=== PATIENT | female | born 1945 | race Caucasian/White ===

== ENCOUNTER 2021-12-20 02:11 | Outpatient (CLI) | payer MEDICARE, SELFPAY ==
--- NOTE | 2021-12-20 | DI.US_ITS ---
Exam(s) US PAIN CLINIC NEEDLE GUIDANCE EXAM: ULTRASOUND GUIDED INJECTION,PIRIFORMIS SYNDROME COMPARISON: No exams were available for comparison TECHNIQUE: Ultrasound guidance was provided for trigger point injection. The radiologist was not pr esent for this procedure. FINDINGS: Submitted images reveal needle in the region of the target muscle. IMPRESSION: DATA REPOSITORY:
[2021-12-20 11:48] VITALS: BP 139/72; PULSE 68; RESP 18; TEMP 36.2; O2SAT 99
--- NOTE | 2021-12-20 12:28 | PDOC.PAIN_ITS ---
Pain Clinic Procedure Note Procedure Note Procedure Note: ULTRASOUND GUIDED LEFT Piriformis muscle trigger point INJECTIONS and left gluteus medius tendon needling Pre-Procedural Evaluation: Karen Rabago has been referred to the [facility] for an Ultrasound Guided left injection for a chief complaint of left buttock pain. Pre-procedure Pain Score: 1/10 Patient was interviewed and the medical record reviewed. There were no medical, pharmacologic, radiographic, or other structural contraindications to preforming an ultrasound guided injection. Risks and expected side effects as well as potential benefits of the procedure were reviewed. The patient consent form was signed and witnessed. Standard time-out procedure was performed. The use of direct ultrasound visualization of the needle (rather than a non- guided injection) was required to increase patient safety by excluding inadvertent intramuscular, intratendinous, or intraneural needle placement and minimizing bleeding by avoiding osteochondral or vascular injury from the need le. Additionally, the increased accuracy of placement may increase clinical effectiveness and will allow higher diagnostic specificity when evaluating effectiveness of this injection. Procedure Description: The patient was placed in the Prone position and automated blood pressure cuff and pulse oximeter applied for monitoring during the procedure and recorded in the medical record. Pre-injection ultrasound scanning of the area of interest was performed using linear transducer, identifying relevant anatomy, landmarks, and neurovascular structures allowing for optimal needle path. The site was then prepared in the usual sterile fashion, using thorough Chlorhexadine preparation of the skin and sterile draping. The same ultrasound transducer was then passed into the sterile field using sterile probe cover and sterile ultrasound gel. The injection target was again visualized. Skin and subcutaneous tissues were anesthetized with 2 mL of 1% Lidocaine. A 21 guage 3.5 Pajunk ultrasound needle was placed under live ultrasound guidance, using an in-plane approach, to the target area. After visualization of the needle tip at the target area (piriformis muscle), a mixture of 1 cc of Depomedrol (40 mg/cc) was injected into the muscle belly and this was flushed with 3 cc of 2% Lidocaine. 15 passes were made through the Piriformis muscle. I then repositioned the needle towards the gluteus medius tendon. I injected 3 cc of 2% Lidocaine around the tendon and made 15 passes through the tendon. I removed the needle without difficulty. This was all completed after negative aspiration for blood. Ultrasound images were captured and stored for documentation purposes. Post-procedure Pain Score:0/10 Vital signs were stable throughout the procedure and were as recorded in the docflowsheet by the nursing staff. Follow up plans and appointments were discussed with the patient.Post procedure instruction was given as documented in nursing documentation and having met discharge criteria, they were discharged from the [facility]. COMMENTS: She will rest the left buttock for 7 days. Andrea Whitehead DO, MPH [facility]-Pain Management [facility]-Center for Pain Management
[2021-12-20] MEDS: Lidocaine 2% Pres-Free 5 ML VIAL IJ (12:51)
[2021-12-20] MEDS: methylPREDNISolone ACETATE 40 MG/ML VIAL IJ (12:51)
[2021-12-20 12:52] VITALS: PULSE 94; O2SAT 96
== END 2021-12-20 02:31 ==
PROVIDERS: PCP Internal Medicine; Visit Provider Preventive Medicine Occupational Medicine
DX: M79.18 Myalgia, other site (principal)
CPT/HCPCS: 20553; 76942; J1030

== ENCOUNTER 2022-05-01 14:44 | Outpatient (CLI) | payer MEDICARE, SELFPAY ==
--- NOTE | 2022-05-01 06:00 | DI.RAD_ITS ---
Exam(s) XR PAIN CLINIC LUMBAR SP 2V EXAM: XR PAIN CLINIC LUMBAR SP 2V CLINICAL HISTORY: Dx: Lumbar Radiculopathy TECHNIQUE: 2D and realtime digital imaging was performed. CONTRAST MATERIAL: Refer to procedure report. COMPARISON: No exams were available for comparison FINDINGS: Fluoroscopy was provided for Dr. Whitehead during the performance of a lumbar epidural steroid injection. Please refer to the procedure report for complete details. Ka,r=7.98 mGy IMPRESSION:
[2022-05-01 14:59] VITALS: BP 132/82; PULSE 95; RESP 20; TEMP 36.9; O2SAT 97
--- NOTE | 2022-05-01 15:29 | PDOC.PAIN ---
Pain Clinic Procedure Note Procedure Note Procedure Note: Lumbar Epidural Steroid Injection Procedure Note COMMENTS: She was recently evaluated (04/09/22) by her spine surgeon at [facility] (Dr. Lieberman), who recommended this procedure. Pre-procedure pain VAS 7/10. Dx: Lumbar radiculopathy Karen Rabago has been referred to the [facility] for lumbar epidural steroid injection. The patient was greeted by the nurse who verified patients name and . Patient was then taken to the fluoroscopy suite. The patient was interviewed and the medial record reviewed. There were no medical, pharmacologic, radiographic, or other structural contraindications to attempting fluoroscopically guided lumbar epidural steroid injection. Risks and expected side effects as well as potential benefits of the procedure were reviewed and voiced concerns expressed. The patient consent form was signed and witnessed. Standard patient time-out procedure was performed. The patient was placed in the prone position on the fluoroscopy table and automated blood pressure cuff and pulse oximeter applied. The skin entry point for entering/approaching the epidural space at L4-L5 and marked. Following thorough chlorhexadine preparation of the skin and draping and 1% lidocaine infiltration of the skin entry point and subcutaneous tissues, a 18 gauge Touhy needle was placed under fluoroscopic guidance and with loss of resistance technique into the epidural space. Needle tip placement and depth were aided and confirmed by fluoroscopy. There was no paresthesia or return of blood or CSF through the needle. 1 cc's of Omnipaque 240 was injected with clear epidural spread confirmed with fluoroscopy. 80mg depomedrol was injected. There was not any unusual discomfort expressed by Karen Rabago. Patient's vital signs were stable throughout the procedure and were as recorded in nursing records. Follow up plans and appointments were discussed with patient. Post procedure instruction was given as documented in nursing records and having met discharge criteria and was discharged from the [facility] Management [facility]. COMMENTS: If this procedure is helpful, it can be completed up to 3 times per 12 months. Post-procedure pain VAS = 2/10. Andrea Whitehead DO, MPH [facility]-Pain Management [facility]-Center for Pain Management
[2022-05-01 15:39] VITALS: BP 149/67; PULSE 92; RESP 16; O2SAT 97
[2022-05-01] MEDS: methylPREDNISolone ACETATE 80 MG/ML VIAL IJ (15:43)
[2022-05-01] MEDS: Omnipaque 240 MG/ML 50 ML BTL IJ (15:43)
== END 2022-05-01 14:45 | disposition home or self-care (01) ==
PROVIDERS: PCP Internal Medicine; Visit Provider Preventive Medicine Occupational Medicine
DX: M54.16 Radiculopathy, lumbar region (principal)
CPT/HCPCS: 62323; 72100; J1040; Q9967

== ENCOUNTER 2022-08-08 14:18 | Outpatient (CLI) | payer MEDICARE, SELFPAY ==
--- NOTE | 2022-08-08 06:00 | DI.RAD_ITS ---
Exam(s) XR PAIN CLINIC SACRIOILIAC 2V EXAM: XR PAIN CLINIC SACRIOILIAC 2V CLINICAL HISTORY: Dx: Sacroiliac Joint Dysfunction TECHNIQUE: 2D and realtime digital imaging was performed. CONTRAST MATERIAL: Refer to procedure report. COMPARISON: No exams were available for comparison FINDINGS: Fluoroscopy was provided for Dr. Whitehead during the performance of a sacroiliac joint injection. [place] abbott refer to the procedure report for complete details. Ka,r=2.48 mGy IMPRESSION:
[2022-08-08 14:50] VITALS: BP 131/71; PULSE 79; RESP 20; TEMP 36; O2SAT 98
--- NOTE | 2022-08-08 15:00 | PDOC.PAIN_ITS ---
Date of service: 08/08/22 Time of Service: 15:00 Pain Clinic Procedure Note Procedure Note Procedure Note: INTRA-ARTICULAR SI JOINT INJECTION Karen Rabago has been referred to the [facility] Management [facility] for intra- articular SI joint injection. COMMENTS: She was previously evaluated. Pre-procedure pain VAS was 7/10. Dx: Sacroiliac joint dysfunction Patient was interviewed and the medical record reviewed. There were no medical, pharmacologic, radiographic or other structural contraindications to attempting fluoroscopically guided intra-articular SI joint injection. Risks and expected side effects as well as potential benefit of the procedure were reviewed and voiced concerns addressed. The printed consent form was signed and witnessed. Standard time-out procedure was performed. Patient was placed in the prone position on the fluoroscopy table and automated blood pressure cuff and pulse oximeter applied. The skin entry point for approaching the left SI joints was identified under the most advantageous fl uoroscopic view and marked. Following thorough Chlorhexadine preparation of the skin and draping and 1% lidocaine infiltration of the skin entry point and subcutaneous tissues, a 22 gauge 3.5 spinal needle was placed under fluoroscopic guidance into the left SI joints was identified under the most advantageous fluoroscopic view and marked. Intra-articular placement was conf irmed by a clear arthrogram resulting from the injection of 0.25ml Omnipaque 240, 1ml 1% lidocaine, and 80mg Depomedrol were injected intra-articularily with an initial reproduction of a significant component of the usual pain. Vital signs were stable throughout the procedure and were as recorded in the docflowsheet by the nursing staff. If given, dosages of intravenous drugs for anxiolysis and analgesia were documented in MAR. Follow up plans and appointments were discussed with the patient. Post procedure instruction was given as documented in nursing documentation and having met discharge criteria, and was discharged from the Pain Management Center. COMMENTS: Post-porcedure pain VAS was 2/10. This procedure can be completed up to 3 times per 12 months if it is found to be effective. Andrea Whitehead DO, MPH [facility]-Pain Management [facility]-Center for Pain Management CC: Gabriella Vines
[2022-08-08] MEDS: Midazolam 2 MG/2 ML VIAL IVP (15:16)
[2022-08-08] MEDS: methylPREDNISolone ACETATE 80 MG/ML VIAL IJ (15:27)
[2022-08-08] MEDS: Omnipaque 240 MG/ML 50 ML BTL IJ (15:28)
== END 2022-08-08 14:19 | disposition home or self-care (01) ==
LOC: PC 14:18
PROVIDERS: PCP Internal Medicine; Visit Provider Preventive Medicine Occupational Medicine
DX: M54.50 Low back pain, unspecified (principal); M53.3 Sacrococcygeal disorders, not elsewhere classified
CPT/HCPCS: 27096; 72200; G0260; J1040; J2250; Q9967

== ENCOUNTER 2024-08-25 08:18 | Outpatient (CLI) | payer MEDICARE, SELFPAY ==
[2024-08-25 08:33] VITALS: BP 142/66; PULSE 73; RESP 12; TEMP 36.3; O2SAT 96
--- NOTE | 2024-08-25 09:12 | PDOC.PAIN ---
Date of service: 08/25/24 Time of Service: 09:15 Pain Managment Procedure Note Procedure Note Procedure Note: ?Sacroiliac Joint Steroid Injection ? Location: ? ? Left SI joint ? Pre-procedure Diagnosis: Sacroiliitis, not elsewhere classified - M46.1 ? Post-procedure Diagnosis:? The same as above ? Sedation:? NONE ? Medication: Depo-Medrol 40 mg, bupivacaine 0.5% 1 mL, Omnipaque 0.25 mL per joint ? Estimated blood loss:? less than 2 cc ? Surgeon:? Walter Go MD ? COMMENT: PT HAD GREATER THAN 50% RELIEF OF HER PAIN FOR GREATER THAN 18 MONTHS FROM PREVIOUS INJECTION ? Procedure Detail:? The procedure and potential risks were explained to the patient and informed written consent was obtained. The patient was escorted to the procedure room and placed in the prone position. Pillows were utilized for proper positioning and comfort. Time out was performed in the procedure room with nursing staff confirming the patient's identity, procedure to be performed, allergies, and any blood thinning or anti-platelet medications. The patient's lumbosacral area was prepped with ChloraPrep and draped in a sterile fashion. Sterile technique was maintained throughout the procedure.? Sterile gloves were used, a face mask was worn, and new single dose vials of all medications were used with the top being swabbed with alcohol and given time to dry prior to withdrawal of medication. Lidocaine 1% was used to anesthetize the skin. With fluoroscopic guidance, a 22-gauge 3.5 spinal needle was advanced into the posteroinferior aspect of the Left SI joint . Confirmation of intra-articular position of the needle tip was obtained with injection of 0.25cc of Omnipaque 240 contrast which showed appropriate spread within the joint.? Following negative aspiration, 40mg of methylprednisolone mixed with 1 mL of bupivacaine 0.5% was injected.? The needle was gently removed. ?The patient tolerated the procedure well and was transported to the recovery area for observation and discharge instructions.? Permanent images saved and recorded. Plan:? Follow up prn. PAIN PRE PROCEDURE 06/19 POST PROCEDURE 12/20 COMMENT: [80] % BETTER AFTER INJECTION
[2024-08-25] MEDS: Omnipaque 240 MG/ML 50 ML BTL IJ (09:15)
[2024-08-25] MEDS: Bupivacaine 0.5% Pres-Free 10 ML VIAL IJ (09:16)
--- NOTE | 2024-08-25 09:16 | DI.RAD_ITS ---
Exam(s) XR PAIN CLINIC SACRIOILIAC 2V EXAM: XR PAIN CLINIC SACRIOILIAC 2V CLINICAL HISTORY: DX: Sacroiliac joint Dysfunction TECHNIQUE: 2D and realtime digital imaging was performed. CONTRAST MATERIAL: Refer to procedure report. COMPARISON: No exams were available for comparison FINDINGS: Fluoroscopy was provided for Dr. Go during the performance of a left sacroiliac joint injection . Please refer to the procedure report for complete details. Ka,r=5.31 mGy IMPRESSION: RADIATION DOSE DELIVERED: 0.0 0.0 0
[2024-08-25] MEDS: Nerve Block Tray 1 EACH MC (09:17)
[2024-08-25] MEDS: methylPREDNISolone ACETATE 80 MG/ML VIAL IJ (09:17)
[2024-08-25 09:18] VITALS: O2SAT 99
== END 2024-08-25 08:19 | disposition home or self-care (01) ==
LOC: PC 08:19
PROVIDERS: PCP Internal Medicine; Visit Provider Anesthesiology Pain Medicine
DX: M54.50 Low back pain, unspecified (principal); M46.1 Sacroiliitis, not elsewhere classified
CPT/HCPCS: 00123; 27096; 72200; J0665; J1010; Q9967